=== PATIENT | male | born 1950 | race Caucasian/White ===

== ENCOUNTER 2021-04-10 11:34 | Emergency (ER) | payer MEDICARE, OTHER ==
[~2021-04-10 11:34] MED LIST: AMLODIPINE BESY10 MG PO; ATORVASTATIN CA40 MG PO; CARVEDILOL 25MG25 MG PO; COREG25 MG PO; DUONEB 2.5-0.5M1 AMP INH; GABAPENTIN800 MG PO; ISOSORBIDE MONO60 MG PO; JANUMET XR 1001 EACH PO; OZEMPIC1 MG/0.75 SC; TRESIBA FL200 UNIT/1 SC; VENTOLIN HFA IN18 GM INH; VICTOZA 3-0.6 MG/0.1 SC
[2021-04-10] MEDS ORDERED: PREDNISONE 20MG20 MG PO (12:21)
== END 2021-04-10 12:28 | disposition home or self-care (01) ==
LOC: FER 11:34
DX: E11.42 Type 2 diabetes mellitus with diabetic polyneuropathy (principal); I10 Essential (primary) hypertension
CPT/HCPCS: 99283